=== PATIENT | female | born 1955 | race Caucasian/White ===

== ENCOUNTER 2016-09-11 09:29 | Day surgery (SDC) | payer OTHER ==
[2016-09-10 18:17] VITALS: BMI 25.4
[~2016-09-11] VITALS: Ht 160 cm; Wt 66.3 kg
[2016-09-11] VITALS (7 sets, daily range): BP systolic 126–160; BP diastolic 74–94; PULSE 16–66; RESP 14–18; Ht 160 cm; Wt 66.3 kg
[2016-09-11] MEDS ORDERED: CHLO25TA13 PO (10:24)
[2016-09-11] MEDS ORDERED: DOLU50TA PO (10:25)
[2016-09-11] MEDS ORDERED: EMTR1TAB16 PO (10:25)
[2016-09-11] MEDS ORDERED: ALEN70TA30 PO (10:26)
[2016-09-11] MEDS ORDERED: HYDR-906 PO (10:27)
[2016-09-11] MEDS ORDERED: BUPIVACAINE 0.5% (SDV) 30 ML INJ ONE (12:28)
[2016-09-11] MEDS ORDERED: LIDOCAINE 1% (STERILE-PAK) 30 ML INJ ONE (12:28)
[2016-09-11] MEDS ORDERED: DEXAMETHASONE 4 MG/ML 1 ML INJ ONE ×2 (12:28→12:49)
--- NOTE | 2016-09-11 12:35 | HPN ---
Date/Time of Note Date/Time of Note DATE: 09/11/16 TIME: 12:35 Interval H&P Admission Note Pt. seen H&P reviewed: No system changes MICHELLE ZHAO DPM Sep 11, 2016 12:35
[2016-09-11] MEDS ORDERED: MIDAZOLAM 1 MG/ML 2 ML INJ ONE (12:38)
[2016-09-11] MEDS ORDERED: PROPOFOL 20 ML ONE (12:38)
[2016-09-11] MEDS ORDERED: FENTAnyl 50 MCG/ML VIAL ONE (12:38)
[2016-09-11] MEDS ORDERED: ONDANSETRON 4 MG INJ ONE (12:49)
[2016-09-11] MEDS ORDERED: CEFAZOLIN 1 GM INJ ONE ×2 (12:50)
[2016-09-11] MEDS ORDERED: ROPIVACAINE 0.5 % 30 ML VIAL ONE (13:39)
[2016-09-11] MEDS ORDERED: KETOROLAC 15 MG INJ ONE (14:05)
[2016-09-11] MEDS ORDERED: HYDROmorphONE (0.2 MG/ML) 10ML SYG IV ONE (14:05)
[2016-09-11] MEDS ORDERED: POVIDONE IODINE 10% 28.4 GM OINT ONE (14:06)
--- NOTE | 2016-09-11 17:20 | PREOPHP ---
DATE OF ADMISSION: 09/11/2016 PODIATRIC HISTORY AND PHYSICAL HISTORY OF PRESENT ILLNESS: The patient is being admitted to the hospital for elective foot surgery , palliative treatment unsuccessful. The patient has been explained surgery, complications, alterna tives and elected to have elective foot surgery. The patient points to hammertoes 2, 3, 4 and 5 on the right foot. ALLERGIES: PATIENT STATES SHE IS NOT ALLERGIC TO ANY MEDICINE. See the history by Dr. Massey for all medicines the patient is taking. There are no problems with he r lungs and heart, kidney, thyroid. She has had hep C. SOCIAL HISTORY: No diabetes and no smoking cigarettes or alcohol. See any other pertinent history also by Dr. Massey and medications by Dr. Massey and upper extremity p hysical exam. PHYSICAL EXAMINATION: LOWER EXTREMITY: Shows a DP and PT equal and regular. NEUROLOGICAL: Negative for pathology. DERMATOLOGICAL: Negative for pathology. MUSCULOSKELETAL: X-ray findings show hammertoe 2, 3, 4 and 5 on the right foot. FINAL DIAGNOSIS: Hammertoe 2, 3, 4 and 5, right foot. Dictated By: MICHELLE BULL/DANE Conf#: [id number] DID#: [id number]
--- NOTE | 2016-09-11 17:30 | OPR ---
DATE OF OPERATION: 09/11/2016 PREOPERATIVE DIAGNOSIS: Hammertoe 2, 3, 4, 5, right foot. POSTOPERATIVE DIAGNOSIS: Hammertoe 2, 3, 4, 5, right foot. SURGERY: Hammertoe correction 2, 3, 4, 5, right foot. SURGEON: Michelle Moncada DPM DESCRIPTION OF OPERATION: The patient was brought to the surgical suite, placed in the supine posit ion. The patient had sterile prep and drape and was under general anesthesia. The patient had find ings consistent with the preop and postop diagnosis and had a tourniquet at the height of the ankle. The first incision, dorsal longitudinal incision on the 2nd digit. Using sharp and blunt dissecti on, the incision was carried deep. The head of the proximal phalanx was freed of its attachment and resected at its surgical neck. The area was then cleansed, coaptated using 3-0 Vicryl, and the ski n was coaptated using 5-0 nylon. Next incision was a dorsal longitudinal incision on the 3rd digit. Using sharp and blunt dissection, the incision was carried deep, the head of the proximal phalanx freed of its attachment, resected at its surgical neck. The area was cleansed, and the area was the n subcutaneously coaptated using 3-0 Vicryl, and the skin was coaptated using 5-0 nylon. Next incis ion was a dorsal longitudinal incision on the 4th digit. Using sharp and blunt dissection, incision was carried deep. The head of the proximal phalanx was freed of its attachment and resected at its surgical neck. The area was then cleansed, and the area was coaptated subcutaneously using 3-0 Arcenio ryl, and the skin was coaptated using 5-0 nylon. The next incision was a longitudinal incision on t he 5th digit. Using sharp and blunt dissection, incision was carried deep. The head of the proxima l phalanx was freed of its attachment, resected at its surgical neck. The area was then cleansed an d subcutaneously coaptated using 3-0 Vicryl, and the skin was coaptated using 5-0 nylon. All incisi ons were then dressed using 1/2-inch Steri-Strips, Betadine ointment, 4x4's impregnated with Betadin e solution and Dimitrios with outer layer of Coban made into semi-compressive dressing. The anesthesiol ogist then gave an ankle block to the patient, and the patient was then awakened. Ankle tourniquet had been removed before the ankle block, and the patient was then taken to the recovery room in sati sfactory condition with minimum blood loss and no complications. Dictated By: MICHELLE BULL/DANE Conf#: [id number] DID#: [id number]
== END 2016-09-11 16:09 | disposition home or self-care (01) ==
LOC: SDS 09:29
PROVIDERS: ATTEND Podiatrist
DX: M20.41 Other hammer toe(s) (acquired), right foot (principal)
CPT/HCPCS: 28285; 88304; 88311; J0690; J1100; J1170; J1885; J2250; J2405; J2795; J3010; Z7512; Z7610